=== PATIENT | male | born 1955 | race Caucasian/White ===

== ENCOUNTER 2018-07-13 12:01 | Day surgery (SDC) | payer OTHER ==
[~2018-07-13] VITALS: Ht 165.1 cm; Wt 72.0 kg
[~2018-07-13 12:01] MED LIST: LISI10TA2 PO
[2018-07-13] MEDS ORDERED: AMLODIPINE (12:49)
[2018-07-13] MEDS ORDERED: ASPIRIN (12:49)
[2018-07-13 12:56] VITALS: Ht 165.1 cm; Wt 72.0 kg
[2018-07-13 13:07] VITALS: BP 112/71; PULSE 59; RESP 18
[2018-07-13] MEDS ORDERED: PROPOFOL 20 ML ONE (13:09)
[2018-07-13] MEDS ORDERED: LIDOCAINE 2% (SDV) 5 ML INJ ONE (13:09)
--- NOTE | 2018-07-13 13:32 | HPN ---
Date/Time of Note Date/Time of Note DATE: 07/13/18 TIME: 13:32 Interval H&P Admission Note Pt. seen H&P reviewed: No system changes JOSEPHINE WYNN July 13, 2018 13:32
--- NOTE | 2018-07-13 13:36 | PREAC ---
Date/Time of Note Date/Time of Note DATE: 07/13/18 TIME: 13:33 Anesthesia Eval and Record Evaluation Time Pre-Procedure Interview DATE: 07/13/18 TIME: 13:33 Age 63 Sex male NPO: 8 hrs Preoperative diagnosis screeening Planned procedure colonoscopy Past Medical History Past Medical History: Includes Cardio: HTN Endo: Diabetes Surgery & Anesthesia Issues No known issue Meds Anticoagulation: No Beta Jo within 24 hr: No Reason Beta Jo not given: Other Reported Medications [Amlodipine] No Conflict Check 07/13/18 [Aspirin] No Conflict Check 07/13/18 Lisinopril* (Lisinopril*) 10 Mg Tablet, 10 MG PO DAILY, TAB 11/20/14 Meds reviewed: Yes Allergies Coded Allergies: No Known Drug Allergies (Verified Allergy, Unknown, 11/20/14) Allergies Reviewed: Yes Labs/Studies Labs Reviewed: Reviewed by anesthesiologist test: N/A Pre-procedure Exam Last vitals Vital Signs Date Temp Pulse Resp B/P (MAP) Pulse Ox O2 O2 Flow FiO2 Time Delivery Rate 07/13/18 98.3 59 18 112/71 100 Room Air 13:07 (85) Airway: Adequate mouth opening Mallampati: Mallampati III Teeth: Normal Lung: Normal Heart: Normal ASA Physical Status ASA physical status: 3 Emergency: None Planned Anesthetic General/MAC: MAC Pre-operative Attestations Prior to commencing anesthesia and surgery, the patient was re-evaluated, there was verification of: *The patient's identity *The results of appropriate recent lab work and preoperative vital signs *The above evaluation not changing prior to induction *Anesthetic plan, risk benefits, alternative and complications discussed with patient/family; questions answered; patient/family understands, accepts and wishes to proceed. GOLDIE ONTIVEROS MD July 13, 2018 13:36
--- NOTE | 2018-07-13 13:36 | PAC ---
Date/Time of Note Date/Time of Note DATE: 07/13/18 TIME: 1350 Post-Anesthesia Notes Post-Anesthesia Note Last documented vital signs Vital Signs Date Temp Pulse Resp B/P (MAP) Pulse Ox O2 O2 Flow FiO2 Time Delivery Rate 07/13/18 98.3 59 18 112/71 100 Room Air 13:07 (85) Activity: WNL Respiratory function: WNL Cardiovascular function: WNL Mental status: Baseline Pain reasonably controlled: Yes Hydration appropriate: Yes Nausea/Vomiting absent: Yes GOLDIE ONTIVEROS MD July 13, 2018 13:36
== END 2018-07-13 15:45 | disposition home or self-care (01) ==
LOC: GIL 12:01
PROVIDERS: ATTEND Internal Medicine Gastroenterology
DX: Z12.11 Encounter for screening for malignant neoplasm of colon (principal); D12.5 Benign neoplasm of sigmoid colon; K57.30 Diverticulosis of large intestine without perforation or abscess without bleeding; I10 Essential (primary) hypertension; E11.9 Type 2 diabetes mellitus without complications; Z79.84 Long term (current) use of oral hypoglycemic drugs
CPT/HCPCS: 45380; 82962; 88305; Z7610